=== PATIENT | female | born 1960 | race Caucasian/White ===

== ENCOUNTER → 2016-10-14 | Outpatient (CLI) | payer BC ==
[2016-10-14 09:41] LABS: ALBUMIN/GLOBULIN RATIO 1.21 (1.00-1.93); ALKALINE PHOSPHATASE 103 U/L (45-117); ALT/SGPT 38 U/L (12-78); ANION GAP 8 MEQ/L (8-16); AST/SGOT 17 U/L (15-37); BILIRUBIN,TOTAL 0.4 MG/DL (0.2-1.0); BLOOD UREA NITROGEN 16 MG/DL (7-18); CALCIUM LEVEL 8.9 MG/DL (8.5-10.1); CARBON DIOXIDE LEVEL 30 MEQ/L (21-32); CHLORIDE LEVEL 105 MEQ/L (98-107); CHOLESTEROL LEVEL 225 MG/DL (<200); CREATININE FOR GFR 0.85 MG/DL (0.55-1.02); FREE T4 1.17 NG/DL (0.76-1.46); GLOMERULAR FILTRATION RATE > 60.0 (>51); GLUCOSE, FASTING 201 MG/DL (70-105); POTASSIUM SERUM 4.5 MEQ/L (3.5-5.1); SODIUM LEVEL 143 MEQ/L (136-145); TOTAL PROTEIN 7.3 GM/DL (6.4-8.2); TRIGLYCERIDES LEVEL 121 MG/DL (<150)
== END | disposition home or self-care (01) ==
LOC: M WUC 08:12
PROVIDERS: ATTEND Physician Assistant
DX: E11.65 Type 2 diabetes mellitus with hyperglycemia (principal); E78.5 Hyperlipidemia, unspecified; E03.9 Hypothyroidism, unspecified; E55.9 Vitamin D deficiency, unspecified

== ENCOUNTER → 2016-12-14 | Outpatient (CLI) | payer BC ==
[2016-12-14 13:37] LABS: ANION GAP 6 MEQ/L (8-16); BLOOD UREA NITROGEN 14 MG/DL (7-18); CALCIUM LEVEL 9.8 MG/DL (8.5-10.1); CARBON DIOXIDE LEVEL 30 MEQ/L (21-32); CHLORIDE LEVEL 104 MEQ/L (98-107); CREATININE FOR GFR 0.82 MG/DL (0.55-1.02); GLOMERULAR FILTRATION RATE > 60.0 (>51); GLUCOSE, FASTING 206 MG/DL (70-105); SODIUM LEVEL 140 MEQ/L (136-145)
== END ==
LOC: M LAB 12:25
PROVIDERS: ATTEND Internal Medicine Gastroenterology
DX: Z00.00 Encounter for general adult medical examination without abnormal findings (principal); R10.11 Right upper quadrant pain; M94.0 Chondrocostal junction syndrome [Tietze]; K21.9 Gastro-esophageal reflux disease without esophagitis

== ENCOUNTER → 2016-12-16 | Outpatient (CLI) | payer BC | LOC: M RAD 08:36 | PROVIDERS: ATTEND Internal Medicine Gastroenterology | DX: Z53.8 Procedure and treatment not carried out for other reasons (principal) ==

== ENCOUNTER → 2017-01-09 | Outpatient (CLI) | payer BC ==
--- NOTE | 2017-01-09 19:07 | REP ---
MRCP: MRCP exam was accomplished utilizing multiple heavily T2 weighted sequences in the axial and coronal planes. MIP reconstruction images are performed. No definite filling defect is seen in the gallbladder. There is no intrahepatic or extrahepatic biliary dilatation. There is no evidence of common bile duct stone. Pancreatic duct is normal in caliber. No adenopathy or free fluid is seen in the visualized abdomen. Two small cysts are seen in the right kidney. IMPRESSION: No biliary abnormality detected. Signed by Harsha Huddleston MD 01/09/2017 08:14 P
== END ==
LOC: M RAD 17:28
PROVIDERS: ATTEND Internal Medicine Gastroenterology
DX: R10.11 Right upper quadrant pain (principal); R19.5 Other fecal abnormalities; K21.9 Gastro-esophageal reflux disease without esophagitis; K59.00 Constipation, unspecified; M94.0 Chondrocostal junction syndrome [Tietze]

== ENCOUNTER → 2018-08-07 | Outpatient (CLI) | payer BC | LOC: M RAD 06:29 | DX: K55.059 Acute (reversible) ischemia of intestine, part and extent unspecified (principal); K59.00 Constipation, unspecified; R10.9 Unspecified abdominal pain | CPT/HCPCS: 76705 ==

== ENCOUNTER → 2018-09-07 | Outpatient (CLI) | payer BC ==
[~2018-09-07] MED LIST: ISOVUE-370 76% 100ML VIAL (Q9967) As Ordered ONE
--- NOTE | 2018-09-07 17:29 | REP ---
CT angiography of the abdomen with IV contrast: History: Nonocclusive mesenteric ischemia. Abdomen pain. CT contrast dose: 100 ml of intravenous Isovue [address] findings: Preliminary digital inside sales advertising executive radiograph is unremarkable. The lung bases are clear. There is moderate diffuse fatty infiltration of the liver. There is a small accessory splenule. The celiac and superior mesenteric artery origins are widely patent. Inferior mesenteric artery is unremarkable at its origin. There is some aortic calcific plaquing. Singular non-stenotic renal artery origins are seen although there is mild calcification at their origins. The distal branches of the SMA and celiac axis are unremarkable. Impression: Mild atherosclerotic vascular calcification. No evidence of mesenteric artery stenosis or occlusion. Moderate fatty infiltration of the liver is seen. Electronically Signed by Shayan Li MD 09/08/2018 08:14 A
== END ==
LOC: M RAD 12:44
PROVIDERS: ATTEND Internal Medicine Gastroenterology
DX: K55.1 Chronic vascular disorders of intestine (principal); R10.84 Generalized abdominal pain
CPT/HCPCS: 74175; Q9967

== ENCOUNTER → 2020-08-10 | Outpatient (CLI) | payer BC | LOC: M LABSMTC 13:35 | PROVIDERS: ATTEND Family Medicine | DX: Z20.828 Contact with and (suspected) exposure to other viral communicable diseases (principal) ==

== ENCOUNTER → 2021-04-21 | Outpatient (REF) | payer BC | LOC: M LAB REF 13:11 | PROVIDERS: ATTEND Internal Medicine Nephrology | DX: E83.42 Hypomagnesemia (principal) ==

== ENCOUNTER → 2021-06-22 | Outpatient (REF) | payer BC | LOC: M LAB REF 17:28 | PROVIDERS: ATTEND Internal Medicine Nephrology | DX: E83.42 Hypomagnesemia (principal) ==

== ENCOUNTER → 2022-01-12 | Outpatient (CLI) | payer BC ==
[~2022-01-12] MED LIST changes: -ISOVUE-370 76% 100ML VIAL (Q9967) As Ordered ONE; +ISOVUE-370 76% 100ML VIAL As Ordered ONE
== END ==
LOC: M RAD 06:54
PROVIDERS: ATTEND Physician Assistant
DX: N13.30 Unspecified hydronephrosis (principal)

== ENCOUNTER → 2022-07-26 | Outpatient (CLI) | payer BC | LOC: M RAD 17:20 | PROVIDERS: ATTEND Nurse Practitioner Family | DX: Z87.891 Personal history of nicotine dependence (principal) ==

== ENCOUNTER → 2022-09-01 | Outpatient (CLI) | payer BC ==
[2022-09-01 17:24] LABS: PLATELET COUNT, AUTOMATED 252 10^3/uL (150-450)
[2022-09-01 17:42] LABS: INR 0.92; PROTHROMBIN TIME 12.6 SECONDS (12.5-14.5)
[2022-09-01 17:43] LABS: PARTIAL THROMBOPLASTIN TIME 32.6 SECONDS (24.8-34.2)
== END ==
LOC: M WUC 14:57
PROVIDERS: ATTEND Internal Medicine Pulmonary Disease
DX: R91.8 Other nonspecific abnormal finding of lung field (principal)

== ENCOUNTER 2022-09-14 07:01 | Day surgery (SDC) | payer BC ==
[~2022-09-14] VITALS: Ht 162.6 cm; Wt 106.6 kg
[~2022-09-14 07:01] MED LIST changes: +FARX1TAB3; -ISOVUE-370 76% 100ML VIAL As Ordered ONE; +LANTINJ4 SQ; +LINZ290C PO; +MECL-86 PO; +PANT40TA29 PO; +ROSU40TA4 PO; +SEMA1PEN2; +VALS1TAB66 PO
[2022-09-14] MEDS ORDERED: propofoL 200 MG/20 ML VIAL As Ordered ONE ×2 (07:34→09:00)
[2022-09-14] MEDS ORDERED: LIDOCAINE 2% 100MG/5ML SDV (FOR ANES.) As Ordered ONE (07:34)
[2022-09-14] MEDS ORDERED: MIDAZOLAM INJ 2MG/2ML VIAL (J2250 PER 1MG) As Ordered ONE (07:34)
[2022-09-14] MEDS ORDERED: fentaNYL 100 MCG/2 ML INJECTION As Ordered ONE (07:34)
[2022-09-14] MEDS ORDERED: ROCURONIUM BROMIDE 50MG/5ML VIAL As Ordered ONE (07:34)
[2022-09-14] MEDS ORDERED: SUGAMMADEX SODIUM 500 MG/5 ML VIAL (BRIDION) As Ordered ONE (07:34)
[2022-09-14] MEDS ORDERED: ONDANSETRON 4MG 2ML VIAL As Ordered ONE (07:34)
[2022-09-14] MEDS ORDERED: LR 1,000 ML IV SCH ×2 (07:45→09:55)
[2022-09-14] MEDS ORDERED: SEVOFLURANE INHAL SOLN 250 ML BTL As Ordered ONE (07:48)
[2022-09-14] MEDS ORDERED: ALBUTEROL SULFATE 2.5MG/0.5ML INH NEB SOLN NEB ONE (07:55)
[2022-09-14] MEDS ORDERED: LIDOCAINE 2% MDV 20ML VIAL INH ONE (07:55)
[2022-09-14] MEDS ORDERED: EPINEPHrine 1MG/10ML SYRINGE 1.5IN As Ordered ONE (08:11)
[2022-09-14] MEDS ORDERED: THROMBIN 5,000 UNITS VIAL As Ordered ONE (08:11)
[2022-09-14] MEDS ORDERED: CETACAINE SPRAY 5GM As Ordered ONE (08:11)
[2022-09-14] MEDS ORDERED: PHENYLephrine 500MCG 5ML (100MCG/ML) SYRINGE As Ordered ONE (09:14)
[2022-09-14] MEDS ORDERED: ALBUTEROL SULFATE 2.5MG/0.5ML INH NEB SOLN INH ONE (09:55)
[2022-09-14] MEDS ORDERED: fentaNYL 100 MCG/2 ML INJECTION IV PRN (09:55)
[2022-09-14] MEDS ORDERED: oxyCODONE 5MG TAB PO PRN (09:55)
[2022-09-14] MEDS ORDERED: ONDANSETRON 4MG 2ML VIAL IV PRN (09:55)
[2022-09-14 12:10] VITALS: BP 113/60
== END 2022-09-14 12:17 | disposition home or self-care (01) ==
LOC: M SDC 07:01
PROVIDERS: ATTEND Internal Medicine Pulmonary Disease
DX: C34.32 Malignant neoplasm of lower lobe, left bronchus or lung (principal); C7A.1 Malignant poorly differentiated neuroendocrine tumors; R91.8 Other nonspecific abnormal finding of lung field; E11.22 Type 2 diabetes mellitus with diabetic chronic kidney disease; K21.9 Gastro-esophageal reflux disease without esophagitis; G47.30 Sleep apnea, unspecified; N18.2 Chronic kidney disease, stage 2 (mild); Z79.899 Other long term (current) drug therapy; Z79.4 Long term (current) use of insulin; Z88.0 Allergy status to penicillin
CPT/HCPCS: 31624; 31627; 31628; 31629; 31653; 71045; 76000; 87428; 88108; 88173; 88305; 88313; 93005; J0171; J1100; J2250; J2370; J2405; J3010; S2900

== ENCOUNTER → 2022-09-25 | Outpatient (CLI) | payer BC | LOC: M LAB 08:41 | PROVIDERS: ATTEND Internal Medicine Pulmonary Disease | DX: C7A.090 Malignant carcinoid tumor of the bronchus and lung (principal) ==

== ENCOUNTER → 2022-09-26 | Outpatient (CLI) | payer BC | LOC: M PLARAD 12:40 | PROVIDERS: ATTEND Nurse Practitioner Family | DX: D38.1 Neoplasm of uncertain behavior of trachea, bronchus and lung (principal) ==

== ENCOUNTER → 2023-05-04 | Outpatient (CLI) | payer BC | LOC: M RAD 08:14 | PROVIDERS: ATTEND Internal Medicine Pulmonary Disease | DX: C7A.090 Malignant carcinoid tumor of the bronchus and lung (principal) ==

== ENCOUNTER 2023-11-14 11:17 | Emergency (ER) | payer BC ==
[~2023-11-14] VITALS: Ht 165.1 cm; Wt 108.3 kg
[2023-11-14 12:56] LABS: RSV AMPLIFICATION NEGATIVE (NEGATIVE)
[2023-11-14] MEDS: ACETAMINOPHEN 325 MG TAB PO ONE (13:34)
[2023-11-14 15:51] VITALS: BP 125/56; TEMP 99.1; O2SAT 97
== END 2023-11-14 16:11 | disposition home or self-care (01) ==
LOC: M ED 11:17
DX: J09.X2 Influenza due to identified novel influenza A virus with other respiratory manifestations (principal); G47.33 Obstructive sleep apnea (adult) (pediatric); K21.9 Gastro-esophageal reflux disease without esophagitis; E78.5 Hyperlipidemia, unspecified; I10 Essential (primary) hypertension; E11.9 Type 2 diabetes mellitus without complications; Z88.0 Allergy status to penicillin; Z87.891 Personal history of nicotine dependence; Z79.4 Long term (current) use of insulin; Z79.899 Other long term (current) drug therapy; Z79.83 Long term (current) use of bisphosphonates; Z79.85 Long-term (current) use of injectable non-insulin antidiabetic drugs